=== PATIENT | female | born 1965 | race Caucasian/White ===

== ENCOUNTER 2019-01-04 17:42 | Emergency (ER) | payer OTHER ==
[2019-01-04 17:51] VITALS: BP 117/77; PULSE 87; RESP 16; TEMP 97.8
[2019-01-04] MEDS ORDERED: DIPH,PERTUS(ACELL)TETVAC-LF 0.5 ML VIAL IM ONE (18:03)
[2019-01-04] MEDS ORDERED: AMOXIC-POT CLAV 875-125MG 1 EACH TAB PO STA (18:03)
--- NOTE | 2019-01-04 18:10 | ED ---
General Adult HPI - General Source: patient, RN notes reviewed, old records reviewed Mode of arrival: ambulatory Limitations: no limitations <Juan Dewey - Last Filed: 01/04/19 19:01> <Princess Huston - Last Filed: 01/04/19 19:42> - General Chief complaint: Animal Bite Stated complaint: Dog bite in the face Time Seen by Provider: 01/04/19 17:52 - History of Present Illness Initial comments: 53-year-old female patient with no pertinent past history presents to ED with dog bite to face. Patient reports that she was bit by a relative's dog. She states that this dog is a pet and is up-to-date on all the shots.. She does have a wound in her left upper lip region. No other injury sustained. Patient does not know date of last tetanus. Patient denies any other complaints at this time. Systemic: Pt denies fatigue, myalgia, fever/chills, rash. Pt denies weakness, night sweats, weight loss. Neuro: Pt denies headache, visual disturbances, syncope or pre-syncope. HEENT: Pt denies ocular discharge or irritation, otalgia, rhinorrhea, pharyngitis or notable lymphadenopathy. Cardiopulmonary: Pt denies chest pain, SOB, heart palpitations, dyspnea on exertion. Abdominal/GI: Pt denies abdominal pain, n/v/d. : Pt denies dysuria, burning w/ urination, frequency/urgency. Denies new onset urinary or bowel incontinence. MSK: Pt denies myalgia, loss of strength or function in extremities. Neuro: Pt denies new onset weakness, paresthesias. (Juan Dewey) - Related Data Previous Rx's Medication Instructions Recorded Amoxicillin/Potassium Clav 1 each PO Q12HR #20 tab 01/04/19 [Augmentin 875-125 Tablet] Allergies Allergy/AdvReac Type Severity Reaction Status Date / Time No Known Allergies Allergy Verified 01/04/19 17:51 Review of Systems ROS Other: All systems not noted in ROS Statement are negative. <Juan Dewey - Last Filed: 01/04/19 19:01> ROS Other: All systems not noted in ROS Statement are negative. <Princess Huston - Last Filed: 01/04/19 19:42> ROS Statement: Those systems with pertinent positive or pertinent negative responses have been documented in the HPI. Past Medical History Past Medical History: Asthma, GERD/Reflux History of Any Multi-Drug Resistant Organisms: None Reported Past Surgical History: Section, Hysterectomy Past Psychological History: No Psychological Hx Reported Smoking Status: Current some day smoker Past Alcohol Use History: Occasional Past Drug Use History: None Reported <Juan Dewey - Last Filed: 01/04/19 19:01> General Exam Limitations: no limitations <Juan Dewey - Last Filed: 01/04/19 19:01> - General Exam Comments Initial Comments: Constitutional: NAD, AOX3, Pt has pleasant affect. HEENT: NC/AT, trachea midline, neck supple, no lymphadenopathy. Posterior pharynx non erythematous, without exudates. External ears appear normal, without discharge. Mucous membranes moist. Eyes PERRLA, EOM intact. There is no scleral icterus. No pallor noted. Cardiopulmonary: RRR, no murmurs, rubs or gallops, no JVD noted. Lungs CTAB in anterior and posterior donato. No peripheral edema. Abdominal exam: Abdomen soft and non-distended. Abdomen non-tender to palpation in all 4 quadrants. Bowel sounds active in LLQ. No hepatosplenomegaly. No ecchymosis Neuro: CN II-XII grossly intact. No nuchal rigidity. MSK: 2 x 2 centimeter laceration to left upper lip region. Avulsion. Skin removed during bite, unable to approximate. No through and through. No other injury. Vigorously irrigated with 1 L normal saline. No posterior calf tenderness bilaterally, homans sign negative bilaterally. Posterior tibialis and radial pulse +2 bilaterally. Sensation intact in upper and lower extremities. Full active ROM in upper and lower extremities, 5/5 stregnth. (Juan Dewey) Course Vital Signs 01/04/19 17:46 Temperature 97.8 F Pulse Rate 87 Respiratory 16 Rate Blood Pressure 117/77 O2 Sat by Pulse 97 Oximetry Medical Decision Making <Juan Dewey - Last Filed: 01/04/19 19:01> <Princess Hutson - Last Filed: 01/04/19 19:42> - Medical Decision Making 53-year-old female patient with no pertinent past history presents to ED with dog bite to face. Patient reports that she was bit by a relative's dog. She states that this dog is a pet and is up-to-date on all the shots.. She does have a wound in her left upper lip region. No other injury sustained. Patient does not know date of last tetanus. Patient denies any other complaints at this time. Physical exam displayed: 2 x 2 centimeter laceration to left upper lip region. Avulsion. Skin removed during bite, unable to approximate. No through and through. No other injury. Vigorously irrigated with 1 L normal saline. Patient tetanus updated. Patient administered 1 dose of Augmentin. Patient declined rabies prophylaxis. Patient will be transferred to [facility] for Plastic Surgery Consultation, accepting physician Dr. Lazaro. Patient prescribed 10 days of Augmentin. Will travel by private vehicle. Case discussed with Dr. Huston. (Juan Dewey) I personally saw and evaluated the patient. Patient has a avulsion of skin and tissue from the left superior lip involving the vermilion border. I feel the patient requires evaluation by plastic surgery for possible repair versus plan for reconstruction. This plan was discussed with patient who is agreeable to transfer her would like to take her by private vehicle. Patient's wounds were cleansed here she was given tetanus prophylaxis and was discharged with the plan to travel to [facility] for evaluation by plastic surgery. (Princess Huston) Disposition Is patient prescribed a controlled substance at d/c from ED?: No - Out of Hospital Transfer - Req. Specs Out of Hospital Transfer - Requested Specifics: Other Emergency Center ([facility]) <Juan Dewey - Last Filed: 01/04/19 19:01> <Princess Huston - Last Filed: 01/04/19 19:42> Clinical Impression: Dog bite Disposition: OTHER INSTITUTION NOT DEFINED Condition: Fair Instructions (If sedation given, give patient instructions): Animal Bite (ED) Prescriptions: Amoxicillin/Potassium Clav [Augmentin 875-125 Tablet] 1 each PO Q12HR #20 tab Referrals: Nonstaff,Physician [Primary Care Provider] - 1-2 days
== END 2019-01-04 19:14 | disposition other institution (70) ==
LOC: EC 17:42
DX: S01.511A Laceration without foreign body of lip, initial encounter (principal); Z53.20 Procedure and treatment not carried out because of patient's decision for unspecified reasons; Z23 Encounter for immunization; F17.200 Nicotine dependence, unspecified, uncomplicated; W54.0XXA Bitten by dog, initial encounter; Y92.009 Unspecified place in unspecified non-institutional (private) residence as the place of occurrence of the external cause
CPT/HCPCS: 90471; 90715; 99284

== ENCOUNTER 2019-10-15 09:27 | Emergency (ER) | payer BC, OTHER ==
[2019-10-15 09:32] VITALS: RESP 18; TEMP 98
[2019-10-15] MEDS ORDERED: ONDANSETRON 4 MG/2 ML VIAL IVP STA (09:40)
[2019-10-15] MEDS ORDERED: SODIUM CHLORIDE 0.9% 1,000 ML IV STA (09:40)
[2019-10-15] MEDS ORDERED: MORPHINE SULFATE 4 MG/ML SYRINGE IV STA (09:40)
[2019-10-15 10:05] LABS: Basophils # (A) 0.1 k/uL (0-0.2); Basophils % (A) 1 %; Eosinophils # (A) 0.3 k/uL (0-0.7); Eosinophils % (A) 3 %; HCT 44.6 % (34.0-46.0); Lymphocytes # (A) 1.9 k/uL (1.0-4.8); Lymphocytes % (A) 20 %; MCH 29.9 pg (25.0-35.0); MCHC 33.6 g/dL (31.0-37.0); Monocytes # (A) 0.5 k/uL (0-1.0); Monocytes % (A) 6 %; Neutrophils # (A) 6.3 k/uL (1.3-7.7); Neutrophils % (A) 68 %; Platelet Count 355 k/uL (150-450); RBC 5.01 m/uL (3.80-5.40); RDW 12.9 % (11.5-15.5); WBC 9.3 k/uL (3.8-10.6)
--- NOTE | 2019-10-15 10:10 | ED ---
Fall HPI - General Chief Complaint: Fall Stated Complaint: Fall Time Seen by Provider: 10/15/19 09:36 Source: patient, RN notes reviewed Mode of arrival: ambulatory Limitations: no limitations - History of Present Illness Initial Comments: This a 54-year-old female presents emergency Department chief complaint of severe left-sided flank pain. Patient states that she fell going out her porch. Patient fell onto her left side. Patient states that she has severe pain throughout the night increasing pain with deep inspiration feels short of breath. Patient also noticed some blood within her urine this morning. Patient states that she is not taking any blood thinners there is no head injury no loss conscious. Patient states there is some bruising on her left side. - Related Data Home Medications Medication Instructions Recorded Confirmed Albuterol Sulfate [Ventolin HFA] 2 puff INHALATION RT-Q4H PRN 10/15/19 10/15/19 FLUoxetine HCL [PROzac] 20 mg PO DAILY 10/15/19 10/15/19 buPROPion SR [Wellbutrin Sr] 150 mg PO DAILY 10/15/19 10/15/19 Previous Rx's Medication Instructions Recorded HYDROcodone/APAP 7.5-325MG [Lefors 1 tab PO Q6HR PRN 3 Days #12 tab 10/15/19 7.5-325] Allergies Allergy/AdvReac Type Severity Reaction Status Date / Time No Known Allergies Allergy Verified 10/15/19 10:10 Review of Systems ROS Statement: Those systems with pertinent positive or pertinent negative responses have been documented in the HPI. ROS Other: All systems not noted in ROS Statement are negative. Past Medical History Past Medical History: Asthma, GERD/Reflux History of Any Multi-Drug Resistant Organisms: None Reported Past Surgical History: Section, Hysterectomy Past Psychological History: No Psychological Hx Reported Smoking Status: Current some day smoker Past Alcohol Use History: Occasional Past Drug Use History: None Reported General Exam Limitations: no limitations General appearance: alert, in no apparent distress Head exam: Present: atraumatic, normocephalic, normal inspection Eye exam: Present: normal appearance, PERRL, EOMI. Absent: scleral icterus, conjunctival injection, periorbital swelling ENT exam: Present: normal exam, normal oropharynx, mucous membranes moist Neck exam: Present: normal inspection, other. Absent: tenderness, meningismus, lymphadenopathy Respiratory exam: Present: normal lung sounds bilaterally, chest wall tenderness (Moderate tenderness in the left side.). Absent: respiratory distress, wheezes, rales, rhonchi, stridor Cardiovascular Exam: Present: normal rhythm, tachycardia, normal heart sounds. Absent: systolic murmur, diastolic murmur, rubs, gallop, clicks GI/Abdominal exam: Present: soft, tenderness, guarding, normal bowel sounds. Absent: distended, rebound, rigid Back exam: Present: full ROM. Absent: tenderness, paraspinal tenderness, vertebral tenderness Neurological exam: Present: alert, oriented X3, CN II-XII intact, reflexes normal. Absent: motor sensory deficit Skin exam: Present: warm, dry, intact, normal color. Absent: rash Course Vital Signs 10/15/19 09:28 Temperature 98.0 F Pulse Rate 112 H Respiratory 18 Rate Blood Pressure 177/108 O2 Sat by Pulse 98 Oximetry Medical Decision Making - Medical Decision Making CT shows evidence of 2 rib fractures and a left no other acute findings. Patient pain is improved will be discharged in stable condition. - Lab Data Result diagrams: 10/15/19 09:53 10/15/19 09:53 Lab Results 10/15/19 10/15/19 10/15/19 Range/Units 09:53 09:53 09:53 WBC 9.3 (3.8-10.6) k/uL RBC 5.01 (3.80-5.40) m/uL Hgb 15.0 (11.4-16.0) gm/dL Hct 44.6 (34.0-46.0) % MCV 89.0 (80.0-100.0) fL MCH 29.9 (25.0-35.0) pg MCHC 33.6 (31.0-37.0) g/dL RDW 12.9 (11.5-15.5) % Plt Count 355 (150-450) k/uL Neutrophils % 68 % Lymphocytes % 20 % Monocytes % 6 % Eosinophils % 3 % Basophils % 1 % Neutrophils # 6.3 (1.3-7.7) k/uL Lymphocytes # 1.9 (1.0-4.8) k/uL Monocytes # 0.5 (0-1.0) k/uL Eosinophils # 0.3 (0-0.7) k/uL Basophils # 0.1 (0-0.2) k/uL PT 9.6 (9.0-12.0) sec INR 0.9 (<1.2) APTT 23.7 (22.0-30.0) sec Sodium 143 (137-145) mmol/L Potassium 4.8 (3.5-5.1) mmol/L Chloride 109 H (98-107) mmol/L Carbon Dioxide 21 L (22-30) mmol/L Anion Gap 13 mmol/L BUN 14 (7-17) mg/dL Creatinine 0.62 (0.52-1.04) mg/dL Est GFR (CKD-EPI)AfAm >90 (>60 ml/min/1.73 sqM) Est GFR (CKD-EPI)NonAf >90 (>60 ml/min/1.73 sqM) Glucose 101 H (74-99) mg/dL Calcium 9.2 (8.4-10.2) mg/dL Total Bilirubin 0.2 (0.2-1.3) mg/dL AST 23 (14-36) U/L ALT 15 (4-34) U/L Alkaline Phosphatase 65 (38-126) U/L Total Protein 8.1 (6.3-8.2) g/dL Albumin 5.1 H (3.5-5.0) g/dL Lipase 111 (23-300) U/L Urine Color Urine Appearance (Clear) Urine pH (5.0-8.0) Ur Specific [place] (1.001-1.035) Urine Protein (Negative) Urine Glucose (UA) (Negative) Urine Ketones (Negative) Urine Blood (Negative) Urine Nitrite (Negative) Urine Bilirubin (Negative) Urine Urobilinogen (<2.0) mg/dL Ur Leukocyte Esterase (Negative) Urine RBC (0-5) /hpf Urine WBC (0-5) /hpf Ur Squamous Epith Cells (0-4) /hpf Urine Mucus (None) /hpf 10/15/19 Range/Units 12:27 WBC (3.8-10.6) k/uL RBC (3.80-5.40) m/uL Hgb (11.4-16.0) gm/dL Hct (34.0-46.0) % MCV (80.0-100.0) fL MCH (25.0-35.0) pg MCHC (31.0-37.0) g/dL RDW (11.5-15.5) % Plt Count (150-450) k/uL Neutrophils % % Lymphocytes % % Monocytes % % Eosinophils % % Basophils % % Neutrophils # (1.3-7.7) k/uL Lymphocytes # (1.0-4.8) k/uL Monocytes # (0-1.0) k/uL Eosinophils # (0-0.7) k/uL Basophils # (0-0.2) k/uL PT (9.0-12.0) sec INR (<1.2) APTT (22.0-30.0) sec Sodium (137-145) mmol/L Potassium (3.5-5.1) mmol/L Chloride (98-107) mmol/L Carbon Dioxide (22-30) mmol/L Anion Gap mmol/L BUN (7-17) mg/dL Creatinine (0.52-1.04) mg/dL Est GFR (CKD-EPI)AfAm (>60 ml/min/1.73 sqM) Est GFR (CKD-EPI)NonAf (>60 ml/min/1.73 sqM) Glucose (74-99) mg/dL Calcium (8.4-10.2) mg/dL Total Bilirubin (0.2-1.3) mg/dL AST (14-36) U/L ALT (4-34) U/L Alkaline Phosphatase (38-126) U/L Total Protein (6.3-8.2) g/dL Albumin (3.5-5.0) g/dL Lipase (23-300) U/L Urine Color Light Yellow Urine Appearance Clear (Clear) Urine pH 5.5 (5.0-8.0) Ur Specific [place] >1.050 H (1.001-1.035) Urine Protein Negative (Negative) Urine Glucose (UA) Negative (Negative) Urine Ketones Negative (Negative) Urine Blood Small H (Negative) Urine Nitrite Negative (Negative) Urine Bilirubin Negative (Negative) Urine Urobilinogen <2.0 (<2.0) mg/dL Ur Leukocyte Esterase Negative (Negative) Urine RBC 2 (0-5) /hpf Urine WBC <1 (0-5) /hpf Ur Squamous Epith Cells 1 (0-4) /hpf Urine Mucus Rare H (None) /hpf Disposition Clinical Impression: Fall, Multiple fractures of ribs of left side Disposition: HOME SELF-CARE Condition: Stable Instructions (If sedation given, give patient instructions): Rib Fracture (ED) Additional Instructions: Please return to the Emergency Department if symptoms worsen or any other concerns. Prescriptions: HYDROcodone/APAP 7.5-325MG [Lefors 7.5-325] 1 tab PO Q6HR PRN 3 Days #12 tab PRN Reason: pain Is patient prescribed a controlled substance at d/c from ED?: Yes When asked, does pt state using other controlled substances?: No If prescribed controlled substance>3 days was MAPS reviewed?: Prescribed <3 Days If opioid is for acute pain is fill amount 7 days or less?: Yes If Rx opioid, was Start Talking consent form obtained?: Yes Referrals: Nonstaff,Physician [Primary Care Provider] - 1-2 days Time of Disposition: 13:12
[2019-10-15 10:17] LABS: ALT 15 U/L (4-34); AST 23 U/L (14-36); African American GFR (CKD) >90 (>60 ml/min/1.73 sqM); Albumin 5.1 g/dL (3.5-5.0); Alkaline Phosphatase 65 U/L (38-126); Anion Gap 13 mmol/L; Blood Urea Nitrogen 14 mg/dL (7-17); Calcium 9.2 mg/dL (8.4-10.2); Carbon Dioxide 21 mmol/L (22-30); Chloride 109 mmol/L (98-107); Glucose 101 mg/dL (74-99); Non-African American GFR(CKD) >90 (>60 ml/min/1.73 sqM); Potassium 4.8 mmol/L (3.5-5.1); Sodium 143 mmol/L (137-145); Total Bilirubin 0.2 mg/dL (0.2-1.3); Total Protein 8.1 g/dL (6.3-8.2)
[2019-10-15 10:18] LABS: INR 0.9 (<1.2); Partial Thromboplastin Time 23.7 sec (22.0-30.0); Prothrombin Time 9.6 sec (9.0-12.0)
[2019-10-15] MEDS ORDERED: MORPHINE SULFATE 4 MG/ML SYRINGE IVP STA (10:44)
--- NOTE | 2019-10-15 10:58 | CT ---
EXAMINATION TYPE: CT ChestAbdPelvis w con DATE OF EXAM: 10/15/2019 COMPARISON: None. HISTORY: Fall, Lt sided rib pain, hematuria CT DLP: 994.5 mGycm. Automated Exposure Control for Dose Reduction was Utilized. CONTRAST: CT scan of the thorax, abdomen and pelvis is performed without oral but with IV Contrast, patient inj ected with 100 mL of Isovue 300. Trauma protocol. FINDINGS: LUNGS: Dependent atelectasis bilateral lower lobes. No suspicious focal consolidation or groundglass opacity. No concerning parenchymal nodules or masses. Focal linear scarring or atelectasis superior a spect right lower lobe coronal image 70. No pleural effusion or pneumothorax seen bilaterally. MEDIASTINUM: There are no greater than 1 cm hilar or mediastinal lymph nodes. No cardiomegaly or pe ricardial effusion is seen. LIVER/GB: No significant abnormality is appreciated. PANCREAS: No significant abnormality is seen. SPLEEN: No significant abnormality is seen. ADRENALS: No significant abnormality is seen. KIDNEYS: Symmetric cortical medullary uptake and excretion without hydronephrosis seen bilaterally. S imple appearing exophytic 1.4 cm thin-walled cyst laterally mid pole level left kidney incidentally n oted axial image 34 series 301. Bladder shows a 2 mm calcific focus in the anterior bladder wall perh aps calculus adherent to wall from scar tissue or adhesion. BOWEL: No suspicious small or large bowel dilatation. Some fecal focal prominence of the right colon on axial image 67. Incidental just over 3 cm diverticulum coronal image 56 near junction of second an d third portion portion. GENITAL ORGANS: Uterus is surgically absent or markedly atrophic. Occasional pelvic phleboliths. LYMPH NODES: No greater than 1cm abdominal or pelvic lymph nodes are appreciated. OSSEOUS STRUCTURES: Acute minimally displaced vertical fractures of the left 12th and 11th ribs coron al images 82 and 85. Slight S-shaped scoliosis. OTHER: No significant additional abnormality is seen. IMPRESSION: 1. Acute minimally displaced vertical fractures left posterior 11th and 12th ribs. 2. No acute posttraumatic finding or evidence of solid organ injury otherwise seen in the thorax abdo men or pelvis. No suspicious free fluid. Possible 2 mm nondependent calculus in the anterior bladder wall as noted above.
[2019-10-15] MEDS ORDERED: ORPHENADRINE 30 MG/ML 2 ML VIAL IVP STA (11:30)
[2019-10-15 12:53] LABS: Appearance,Urine Clear (Clear); Bilirubin,Urine Negative (Negative); Blood,Urine Small (Negative); Color,Urine Light Yellow; Glucose,Urine (UA) Negative (Negative); Ketones,Urine Negative (Negative); Leukocyte Esterase,Urine Negative (Negative); Mucus,Urine Rare /hpf; Nitrite,Urine Negative (Negative); PH, Urine 5.5 (5.0-8.0); Protein,Urine Negative (Negative); RBC,Urine 2 /hpf (0-5); Squamous Epithelial Cell,Urine 1 /hpf (0-4); Urobilinogen,Urine <2.0 mg/dL (<2.0); WBC,Urine <1 /hpf (0-5)
[2019-10-15 13:02] LABS: Specific Gravity,Urine >1.050 (1.001-1.035)
[2019-10-15 13:30] VITALS: BP 121/85; PULSE 84
== END 2019-10-15 13:30 | disposition home or self-care (01) ==
LOC: EC 09:27
DX: S22.42XA Multiple fractures of ribs, left side, initial encounter for closed fracture (principal); R10.9 Unspecified abdominal pain; R31.9 Hematuria, unspecified; J45.909 Unspecified asthma, uncomplicated; F17.200 Nicotine dependence, unspecified, uncomplicated; Z79.899 Other long term (current) drug therapy; W01.0XXA Fall on same level from slipping, tripping and stumbling without subsequent striking against object, initial encounter
CPT/HCPCS: 99284; 96374; 96375 ×2; 96376; 96361; 36415; 80053; 83690; 85025; 85610; 85730; 81001; 71260; 74177; J2270; J2360; J2405; Q9967

== ENCOUNTER 2019-10-17 11:05 | Emergency (ER) | payer BC, OTHER ==
[2019-10-17 11:20] VITALS: TEMP 97.9
[2019-10-17] MEDS ORDERED: KETOROLAC 30 MG/ML 1 ML VIAL IM STA (11:37)
[2019-10-17] MEDS ORDERED: MORPHINE SULFATE 4 MG/ML SYRINGE IM STA (11:37)
--- NOTE | 2019-10-17 11:42 | ED ---
General Adult HPI - General Chief complaint: Shortness of Breath Stated complaint: broken ribs Time Seen by Provider: 10/17/19 11:31 Source: patient, RN notes reviewed, old records reviewed Mode of arrival: ambulatory Limitations: no limitations - History of Present Illness Initial comments: 54-year-old female presented for evaluation of left-sided rib pain. Patient to fall 2 days ago with 2 known rib fractures. She was seen emergency department at that time. Prescribed pain control. States that the pain medicine is not working well and she is having some moderate dyspnea as well as worsening pain. Denies any new injury. Denies fever or chills. Denies significant cough. Patient is otherwise healthy with no chronic medical conditions. No anticoagulation. - Related Data Home Medications Medication Instructions Recorded Confirmed Albuterol Sulfate [Ventolin HFA] 2 puff INHALATION RT-Q4H PRN 10/15/19 10/15/19 FLUoxetine HCL [PROzac] 20 mg PO DAILY 10/15/19 10/15/19 buPROPion SR [Wellbutrin Sr] 150 mg PO DAILY 10/15/19 10/15/19 Previous Rx's Medication Instructions Recorded HYDROcodone/APAP 7.5-325MG [Switchback 1 tab PO Q6HR PRN 3 Days #12 tab 10/15/19 7.5-325] HYDROcodone/APAP 5-325MG [Switchback 1 tab PO Q6HR PRN #12 tab 10/17/19 5-325] Ibuprofen [Motrin] 600 mg PO Q8HR PRN #24 tab 10/17/19 Lidocaine 5% Patch [Lidoderm 5% 1 patch TOPICAL DAILY #15 patch 10/17/19 Patch] Allergies Allergy/AdvReac Type Severity Reaction Status Date / Time No Known Allergies Allergy Verified 10/17/19 11:20 Review of Systems ROS Statement: Those systems with pertinent positive or pertinent negative responses have been documented in the HPI. ROS Other: All systems not noted in ROS Statement are negative. Past Medical History Past Medical History: Asthma, GERD/Reflux History of Any Multi-Drug Resistant Organisms: None Reported Past Surgical History: Section, Hysterectomy Past Psychological History: No Psychological Hx Reported Smoking Status: Current some day smoker Past Alcohol Use History: Occasional Past Drug Use History: None Reported General Exam Limitations: no limitations General appearance: alert, in no apparent distress Head exam: Present: atraumatic, normocephalic Eye exam: Present: normal appearance, PERRL ENT exam: Present: normal exam Neck exam: Present: normal inspection. Absent: tenderness, meningismus Respiratory exam: Present: normal lung sounds bilaterally, chest wall tenderness. Absent: respiratory distress, wheezes Cardiovascular Exam: Present: regular rate, normal rhythm GI/Abdominal exam: Present: soft. Absent: distended, tenderness, guarding Extremities exam: Present: normal inspection, normal capillary refill. Absent: pedal edema Neurological exam: Present: alert, oriented X3 Psychiatric exam: Present: normal affect, normal mood Skin exam: Present: warm, dry, intact. Absent: cyanosis, diaphoretic Course Vital Signs 10/17/19 11:17 Temperature 97.9 F Pulse Rate 83 Respiratory 22 Rate Blood Pressure 121/74 O2 Sat by Pulse 98 Oximetry Medical Decision Making - Medical Decision Making 54-year-old female with pain associated with known left rib fractures. X-ray repeated, shows a ninth and 10th displaced rib fracture, no pneumothorax. Minimal atelectasis versus fluid. Injury is greater than 48 hours old. Patient has significant improved pain control emergency department. She will be prescribed Switchback, Motrin, and lidocaine patch. She has) follow-up with her primary care physician. She is given an incentive spirometer by respiratory, encouraged to use hourly. Disposition Clinical Impression: Multiple fractures of ribs of left side Disposition: HOME SELF-CARE Condition: Good Additional Instructions: Please follow up with her primary care physician for continued dosing of pain medication. These return with worsening or changing symptoms. Prescriptions: Lidocaine 5% Patch [Lidoderm 5% Patch] 1 patch TOPICAL DAILY #15 patch Ibuprofen [Motrin] 600 mg PO Q8HR PRN #24 tab PRN Reason: Pain HYDROcodone/APAP 5-325MG [Switchback 5-325] 1 tab PO Q6HR PRN #12 tab PRN Reason: Pain Is patient prescribed a controlled substance at d/c from ED?: No Referrals: Nonstaff,Physician [Primary Care Provider] - 1-2 days Time of Disposition: 12:56
[2019-10-17] MEDS ORDERED: LIDOCAINE 5% PATCH TOPICAL SCH (11:45)
--- NOTE | 2019-10-17 12:28 | XR ---
EXAMINATION TYPE: XR chest 2V DATE OF EXAM: 10/17/2019 COMPARISON: None INDICATION: Rib fracture TECHNIQUE: Frontal and lateral views of the chest are obtained. FINDINGS: The heart size is normal. The pulmonary vasculature is normal. There is minimal blunting left costophrenic angle. Very minimal fluid may be present.. No pneumothor ax is evident. Lateral 10th and ninth rib fractures are evident. IMPRESSION: 1. Minimal blunting left costophrenic angle. This could be related to fluid or atelectasis. 2. Lateral left rib fractures 9 and 10
[2019-10-17 13:13] VITALS: BP 127/85; PULSE 73; RESP 16
== END 2019-10-17 13:13 | disposition home or self-care (01) ==
LOC: EC 11:05
DX: S22.42XA Multiple fractures of ribs, left side, initial encounter for closed fracture (principal); J45.909 Unspecified asthma, uncomplicated; F17.200 Nicotine dependence, unspecified, uncomplicated; Z79.899 Other long term (current) drug therapy; W19.XXXA Unspecified fall, initial encounter; Y92.009 Unspecified place in unspecified non-institutional (private) residence as the place of occurrence of the external cause
CPT/HCPCS: 71046; 99285; 96372 ×2; J2270; J1885

== ENCOUNTER 2021-05-24 19:51 | Emergency (ER) | payer BC, OTHER ==
[2021-05-24 20:24] VITALS: BP 128/74; TEMP 98.1
[2021-05-24] MEDS ORDERED: ALBUTEROL NEBULIZED 2.5 MG/3 ML INHALATION STA (21:04)
[2021-05-24] MEDS ORDERED: IPRATROPIUM-ALBUTEROL 3 ML NEB INHALATION STA (21:04)
--- NOTE | 2021-05-24 21:07 | XR ---
EXAMINATION TYPE: XR chest 2V DATE OF EXAM: 05/24/2021 COMPARISON: 10/17/2019 HISTORY: Short of breath TECHNIQUE: FINDINGS: Heart and mediastinum are normal. Lungs are clear. Diaphragm is normal. Bony thorax appears normal. IMPRESSION: Normal chest. There is improved inspiration compared to old exam.
[2021-05-24] MEDS ORDERED: predniSONE 20 MG TAB PO STA (21:08)
--- NOTE | 2021-05-24 21:08 | ED ---
General Adult HPI - General Chief complaint: Upper Respiratory Infection Stated complaint: Sore throat,Asthma Time Seen by Provider: 05/24/21 20:53 Source: patient Mode of arrival: ambulatory Limitations: no limitations - History of Present Illness Initial comments: Patient is a 55-year-old woman with history of asthma who states that it feels like her asthma is flaring up. The patient states that symptoms started proximally 24 hours ago. Last evening she was feeling like she is developing shortness of breath and wheeze. She tried the albuterol at home which was just giving minimal relief. The symptoms worsened over the course of today. She states that previously when her breathing is been like this she has needed a course of steroids. There is a cough but it is nonproductive. No fever or chills. No chest pain. Onset/Timin -: days(s) Severity scale (1-10): 0 Consistency: constant Improves with: none Worsens with: none Associated Symptoms: cough, shortness of breath Treatments Prior to Arrival: other - Related Data Home Medications Medication Instructions Recorded Confirmed Albuterol Sulfate [Ventolin HFA] 2 puff INHALATION RT-Q4H PRN 10/15/19 10/15/19 FLUoxetine HCL [PROzac] 20 mg PO DAILY 10/15/19 10/15/19 buPROPion SR [Wellbutrin Sr] 150 mg PO DAILY 10/15/19 10/15/19 Previous Rx's Medication Instructions Recorded HYDROcodone/APAP 7.5-325MG [[place] 1 tab PO Q6HR PRN 3 Days #12 tab 10/15/19 7.5-325] HYDROcodone/APAP 5-325MG [[place] 1 tab PO Q6HR PRN #12 tab 10/17/19 5-325] Ibuprofen [Motrin] 600 mg PO Q8HR PRN #24 tab 10/17/19 Lidocaine 5% Patch [Lidoderm 5% 1 patch TOPICAL DAILY #15 patch 10/17/19 Patch] predniSONE 60 mg PO DAILY #30 tab 05/24/21 Allergies Allergy/AdvReac Type Severity Reaction Status Date / Time No Known Allergies Allergy Verified 10/17/19 11:20 Review of Systems ROS Statement: Those systems with pertinent positive or pertinent negative responses have been documented in the HPI. ROS Other: All systems not noted in ROS Statement are negative. Constitutional: Denies: fever, chills, weakness Respiratory: Reports: cough, dyspnea, wheezes. Denies: hemoptysis Cardiovascular: Denies: chest pain, palpitations, edema Gastrointestinal: Denies: abdominal pain, vomiting, diarrhea Genitourinary: Denies: dysuria, hematuria Musculoskeletal: Denies: back pain Skin: Denies: rash Neurological: Denies: headache Past Medical History Past Medical History: Asthma, GERD/Reflux History of Any Multi-Drug Resistant Organisms: None Reported Past Surgical History: Section, Hysterectomy Past Psychological History: No Psychological Hx Reported Smoking Status: Never smoker Past Alcohol Use History: Occasional Past Drug Use History: None Reported General Exam Limitations: no limitations General appearance: alert, in no apparent distress Head exam: Present: atraumatic, normocephalic Eye exam: Present: normal appearance. Absent: scleral icterus, conjunctival injection ENT exam: Present: normal oropharynx Neck exam: Present: normal inspection Respiratory exam: Present: wheezes. Absent: respiratory distress, rales, rhonchi, stridor, accessory muscle use, decreased breath sounds Cardiovascular Exam: Present: regular rate, normal rhythm, normal heart sounds. Absent: systolic murmur, diastolic murmur, rubs, gallop GI/Abdominal exam: Present: soft. Absent: distended, tenderness, guarding, rebound, rigid, mass, pulsatile mass Extremities exam: Present: normal inspection, normal capillary refill. Absent: pedal edema, calf tenderness Back exam: Present: normal inspection. Absent: CVA tenderness (R), CVA tenderness (L) Neurological exam: Present: alert Skin exam: Present: warm, dry, intact, normal color. Absent: rash Course Vital Signs 05/24/21 20:21 Temperature 98.1 F Pulse Rate 112 H Respiratory 24 Rate Blood Pressure 128/74 O2 Sat by Pulse 93 L Oximetry Medical Decision Making - Lab Data Lab Results 05/24/21 Range/Units 20:24 Coronavirus (PCR) Not Detected (Not Detectd) Disposition Clinical Impression: Asthma exacerbation Disposition: HOME SELF-CARE Condition: Good Instructions (If sedation given, give patient instructions): Asthma (DC) Prescriptions: predniSONE 60 mg PO DAILY #30 tab Is patient prescribed a controlled substance at d/c from ED?: No Referrals: Nonstaff,Physician [Primary Care Provider] - 1-2 days
[2021-05-24 23:21] VITALS: PULSE 98; RESP 20
== END 2021-05-24 23:21 | disposition home or self-care (01) ==
LOC: EC 19:51
DX: J45.901 Unspecified asthma with (acute) exacerbation (principal); Z79.51 Long term (current) use of inhaled steroids; Z79.1 Long term (current) use of non-steroidal anti-inflammatories (NSAID); Z79.899 Other long term (current) drug therapy
CPT/HCPCS: 94640; 87635; 71046; 99285; J7512

== ENCOUNTER 2021-05-25 00:44 | Observation (INO) | payer OTHER ==
[2021-05-25] MEDS ORDERED: ALBUTEROL NEBULIZED 2.5 MG/3 ML INHALATION STA ×2 (00:54→05:21)
--- NOTE | 2021-05-25 01:06 | ED ---
SOB HPI - General Chief Complaint: Shortness of Breath Stated Complaint: Shortness of Breath, revisit Time Seen by Provider: 05/25/21 00:50 Source: patient Mode of arrival: ambulatory Limitations: no limitations - History of Present Illness Initial Comments: This patient is a 55-year-old woman who has history of asthma and presents with a couple of days worsening cough, dyspnea, wheezing. She states it similar previous asthma exacerbations. She was seen here earlier, had treatments and then felt that she could manage at home but states that the dyspnea returned very shortly after leaving and therefore presents for reevaluation. Complaint: shortness of breath, cough, "asthma attack" -: days(s) Severity scale (1-10): 0 Consistency: constant Improves With: nothing Worsens With: nothing Known History Of: asthma Associated Symptoms: cough Treatments Prior to Arrival: none - Related Data Home Oxygen Therapy: No Home Medications Medication Instructions Recorded Confirmed Albuterol Sulfate [Ventolin HFA] 2 puff INHALATION RT-Q4H PRN 10/15/19 05/25/21 Previous Rx's Medication Instructions Recorded Montelukast [Singulair] 10 mg PO HS #30 tab 05/26/21 predniSONE See Taper PO DIRECTED #40 tab 05/26/21 Allergies Allergy/AdvReac Type Severity Reaction Status Date / Time No Known Allergies Allergy Verified 05/25/21 17:08 Review of Systems ROS Statement: Those systems with pertinent positive or pertinent negative responses have been documented in the HPI. ROS Other: All systems not noted in ROS Statement are negative. Constitutional: Denies: fever Respiratory: Reports: cough, dyspnea, wheezes. Denies: hemoptysis Cardiovascular: Denies: chest pain, palpitations, edema, syncope Gastrointestinal: Denies: abdominal pain, vomiting, diarrhea Genitourinary: Denies: urgency, dysuria Musculoskeletal: Denies: back pain Skin: Denies: rash Neurological: Denies: headache, weakness, numbness Past Medical History Past Medical History: Asthma, GERD/Reflux History of Any Multi-Drug Resistant Organisms: None Reported Past Surgical History: Section, Hysterectomy Past Psychological History: No Psychological Hx Reported Smoking Status: Never smoker Past Alcohol Use History: Occasional Past Drug Use History: None Reported - Past Family History Mother Family Medical History: No Reported History Father Family Medical History: No Reported History General Exam Limitations: no limitations General appearance: alert, in no apparent distress Head exam: Present: atraumatic, normocephalic Eye exam: Present: normal appearance. Absent: scleral icterus, conjunctival injection ENT exam: Present: normal oropharynx Neck exam: Present: normal inspection Respiratory exam: Present: respiratory distress, wheezes. Absent: rales, rhonchi, stridor, accessory muscle use, decreased breath sounds, prolonged expiratory Cardiovascular Exam: Present: regular rate, normal rhythm, normal heart sounds. Absent: systolic murmur, diastolic murmur, rubs, gallop GI/Abdominal exam: Present: soft. Absent: distended, tenderness, guarding, rebound, rigid, mass Extremities exam: Present: normal inspection, normal capillary refill. Absent: pedal edema, calf tenderness Back exam: Present: normal inspection. Absent: CVA tenderness (R), CVA tenderness (L) Neurological exam: Present: alert Skin exam: Present: warm, dry, intact, normal color. Absent: rash Course Vital Signs 05/25/21 05/25/21 05/25/21 00:49 01:12 01:31 Temperature 98 F Pulse Rate 122 H 110 H 131 H Respiratory 28 H Rate Blood Pressure 128/79 O2 Sat by Pulse 88 L Oximetry 05/25/21 05/25/21 05/25/21 05:10 05:19 05:20 Temperature Pulse Rate 92 111 H 111 H Respiratory Rate Blood Pressure O2 Sat by Pulse Oximetry 05/25/21 05/25/21 05/25/21 05:33 06:44 07:22 Temperature 98.9 F Pulse Rate 117 H 107 H 112 H Respiratory 18 Rate Blood Pressure 112/69 O2 Sat by Pulse 95 Oximetry 05/25/21 05/25/21 05/25/21 07:40 09:00 10:33 Temperature Pulse Rate 122 H 101 H Respiratory Rate Blood Pressure 112/66 O2 Sat by Pulse Oximetry 05/25/21 05/25/21 05/25/21 10:43 11:00 13:00 Temperature Pulse Rate 115 H Respiratory Rate Blood Pressure 113/43 115/65 O2 Sat by Pulse Oximetry 05/25/21 05/25/21 05/25/21 15:02 15:12 15:51 Temperature Pulse Rate 82 Respiratory 80 H 80 H Rate Blood Pressure 135/74 O2 Sat by Pulse 97 Oximetry 05/25/21 05/25/21 16:18 16:19 Temperature Pulse Rate 84 65 Respiratory 18 Rate Blood Pressure 144/65 O2 Sat by Pulse 97 Oximetry Medical Decision Making - Lab Data Result diagrams: 05/26/21 06:34 05/26/21 06:34 - EKG Data -: EKG Interpreted by Me EKG shows normal: sinus rhythm, axis (Normal), intervals (Normal), QRS complexes (Normal), ST-T waves (Normal) Rate: tachycardia (Rate 111 bpm) Disposition Clinical Impression: Asthma exacerbation Disposition: ADMITTED IP TO THIS HOSP Condition: Fair
[2021-05-25] MEDS ORDERED: ALBUTEROL NEBULIZED 2.5 MG/3 ML INHALATION PRN (01:07)
[2021-05-25] MEDS ORDERED: SODIUM CHLORIDE 0.9% 1,000 ML IV STA (01:11)
[2021-05-25 01:43] LABS: Basophils % (A) 0 %; Eosinophils # (A) 0.2 k/uL (0-0.7); Eosinophils % (A) 2 %; HCT 42.1 % (34.0-46.0); HGB 13.9 gm/dL (11.4-16.0); Lymphocytes # (A) 0.7 k/uL (1.0-4.8); Lymphocytes % (A) 6 %; MCH 30.4 pg (25.0-35.0); MCHC 33.1 g/dL (31.0-37.0); MCV 91.9 fL (80.0-100.0); Mean Platelet Volume 7.2; Monocytes # (A) 0.2 k/uL (0-1.0); Monocytes % (A) 2 %; Neutrophils # (A) 9.7 k/uL (1.3-7.7); Neutrophils % (A) 90 %; Platelet Count 293 k/uL (150-450); RBC 4.58 m/uL (3.80-5.40); RDW 12.5 % (11.5-15.5); WBC 10.8 k/uL (3.8-10.6)
[2021-05-25] MEDS: SODIUM CHLORIDE 0.9% 1,000 ML IV SCH ×2 (01:48→17:20)
[2021-05-25 02:02] LABS: ALT 12 U/L (4-34); AST 18 U/L (14-36); African American GFR (CKD) >90 (>60 ml/min/1.73 sqM); Albumin 4.4 g/dL (3.5-5.0); Alkaline Phosphatase 97 U/L (38-126); Anion Gap 10 mmol/L; Blood Urea Nitrogen 13 mg/dL (7-17); Calcium 9.5 mg/dL (8.4-10.2); Carbon Dioxide 22 mmol/L (22-30); Chloride 108 mmol/L (98-107); Glucose 149 mg/dL (74-99); Non-African American GFR(CKD) >90 (>60 ml/min/1.73 sqM); Potassium 3.6 mmol/L (3.5-5.1); Sodium 140 mmol/L (137-145); Total Bilirubin 0.4 mg/dL (0.2-1.3); Total Protein 7.1 g/dL (6.3-8.2)
[2021-05-25] MEDS: IPRATROPIUM-ALBUTEROL 3 ML NEB INHALATION SCH ×4 (07:22→21:05)
[2021-05-25] MEDS ORDERED: BUDESONIDE 0.5 MG/2 ML NEBU INHALATION SCH (08:00)
--- NOTE | 2021-05-25 08:23 | P.CNPUL ---
History of Present Illness Consult date: 05/25/21 Requesting physician: Robert Musa Reason for consult: dyspnea, cough Chief complaint: dyspnea, cough, wheezing History of present illness: This is a 55-year-old white female patient with past medical history of chronic bronchial asthma, mild intermittent at baseline and patient has not had a flareup in quite a while. She recently moved to this area from [facility]. Patient is a nonsmoker, she does have history of GERD/reflux, previous history of and hysterectomy, no other medical problems, she is not normally prescription medications, not normally on any maintenance i nhalers, other than albuterol. Patient came into the emergency department on 05/24/2021 for evaluation of what she feels like her asthma flareup. Her symptoms started approximately 24 hours prior. In the evening she felt like she was developing shortness of breath and wheezing. Her cough was dry and nonproductive, denied any fever or chills, no chest pain. Chest x-ray showed a normal chest, she was tested for COVID-19 and was found to be negative. She was given oral steroids, and was released home. She returned to the emergency department a few hours later, on 05/25/2021 at around 1:00 in the morning for evaluation. Blood work was also drawn, showing white blood cell count of 10.8, hemoglobin of 13.9, serum sodium of 140, potassium is 3.6, chloride is 108, CO2 is 22, BUN is 13 creatinine was 0.52, LFTs were within normal limits, troponin was less than 0.012, proBNP was 86, 19 was again negative. Patient was started on IV steroids, given nebulized bronchodilators, and we were asked to see the patient in evaluation regarding her acute exacerbation of chronic bronchial asthma. Review of Systems All systems: negative Constitutional: Denies chills, Denies fever Eyes: denies blurred vision, denies pain Ears, nose, mouth and throat: Denies headache, Denies sore throat Cardiovascular: Denies chest pain, Denies shortness of breath Respiratory: Reports dyspnea, Reports wheezing, Denies cough Gastrointestinal: Denies abdominal pain, Denies diarrhea, Denies nausea, Denies vomiting Genitourinary: Denies dysuria, Denies hematuria Musculoskeletal: Denies myalgias Integumentary: Denies pruritus, Denies rash Neurological: Denies numbness, Denies weakness Psychiatric: Denies anxiety, Denies depression Endocrine: Denies fatigue, Denies weight change Past Medical History Past Medical History: Asthma, GERD/Reflux History of Any Multi-Drug Resistant Organisms: None Reported Past Surgical History: Section, Hysterectomy Past Psychological History: No Psychological Hx Reported Smoking Status: Never smoker Past Alcohol Use History: Occasional Past Drug Use History: None Reported Medications and Allergies Home Medications Medication Instructions Recorded Confirmed Type Albuterol Sulfate [Ventolin HFA] 2 puff INHALATION RT-Q4H PRN 10/15/19 05/25/21 History predniSONE 60 mg PO DAILY #30 tab 05/24/21 05/25/21 Rx Allergies Allergy/AdvReac Type Severity Reaction Status Date / Time No Known Allergies Allergy Verified 05/25/21 07:31 Physical Exam Vitals: Vital Signs Temp Pulse Resp BP Pulse Ox 05/25/21 07:40 122 H 05/25/21 07:22 112 H 05/25/21 06:44 98.9 F 107 H 18 112/69 95 05/25/21 05:33 117 H 05/25/21 05:20 111 H 05/25/21 05:19 111 H 05/25/21 05:10 92 05/25/21 01:31 131 H 05/25/21 01:12 110 H 05/25/21 00:49 98 F 122 H 28 H 128/79 88 L Intake and Output 05/24/21 05/25/21 05/25/21 22:59 06:59 14:59 Other: Weight 64.41 kg GENERAL EXAM: Alert, very pleasant, 65-year-old white female, resting comfortably on a gurney in the emergency department, she is currently on 2 L of oxygen, with a pulse ox of 94%comfortable in no apparent distress. HEAD: Normocephalic/atraumatic. EYES: Normal reaction of pupils, equal size. Conjunctiva pink, sclera white. NOSE: Clear with pink turbinates. THROAT: No erythema or exudates. NECK: No masses, no JVD, no thyroid enlargement, no adenopathy. CHEST: No chest wall deformity. Symmetrical expansion. LUNGS: Equal air entry with mild wheezing, and end expiratory maneuver, CVS: Regular rate and rhythm, normal S1 and S2, no gallops, no murmurs, no rubs ABDOMEN: Soft, nontender. No hepatosplenomegaly, normal bowel sounds, no guar ding or rigidity. EXTREMITIES: No clubbing, no edema, no cyanosis, 2+ pulses and upper and lower extremities. MUSCULOSKELETAL: Muscle strength and tone normal. SPINE: No scoliosis or deformity SKIN: No rashes CENTRAL NERVOUS SYSTEM: Alert and oriented -3. No focal deficits, tone is normal in all 4 extremities. PSYCHIATRIC: Alert and oriented -3. Appropriate affect. Intact judgment and insight. Results - Laboratory Findings CBC and BMP: 05/25/21 01:33 05/25/21 01:33 PT/INR, D-dimer D-Dimer 1.28 mg/L FEU (<0.60) H 05/25/21 01:33 Abnormal lab findings: Abnormal Labs 05/25/21 05/25/21 05/25/21 01:33 01:33 01:33 WBC 10.8 H Neutrophils # 9.7 H Lymphocytes # 0.7 L D-Dimer 1.28 H Chloride 108 H Glucose 149 H - Diagnostic Findings Chest x-ray: report reviewed, image reviewed Assessment and Plan Plan: assessment: #1. Acute exacerbation of chronic bronchial asthma, which is mild intermittent at baseline. COVID-19 PCR was negative 2 #2. Mild intermittent bronchial asthma, patient is only on rescue inhaler at baseline #3. Former smoker, currently in remission #4. GERD/reflux #5. History of and hysterectomy Plan: Continue IV steroids Continue Pulmicort and Perforomist Continue DuoNeb 4 times a day and every 2 when necessary COVID-19 PCR was negative 2 Vital signs are stable we'll continue to monitor and follow her clinical course I performed a history & physical examination of the patient and discussed their management with my nurse practitioner, Kenyatta Liao. I reviewed the nurse practitioner's note and agree with the documented findings and plan of care. Lung sounds are positive for diffuse wheezes throughout the lung donato. The findings and the impression was discussed with the patient. I attest to the documentation by the nurse practitioner. Time with Patient: Greater than 30
[2021-05-25] MEDS ORDERED: predniSONE 20 MG TAB PO SCH (09:00)
[2021-05-25] MEDS: FORMOTEROL FUMARATE 20 MCG/2 ML NEBU INHALATION SCH ×2 (09:04→21:05)
[2021-05-25] MEDS: PANTOPRAZOLE 40 MG TABLET PO SCH (12:59)
[2021-05-25] MEDS: methylPREDNISolone SOD SUCCI 125 MG/2 ML VIAL IV SCH ×3 (12:59→18:03)
[2021-05-25] MEDS: HEPARIN SODIUM,PORCINE/PF 5,000 UNIT/0.5 ML SYRINGE SQ SCH (17:20)
[2021-05-25] MEDS: BUDESONIDE 1 MG/2 ML NEBU INHALATION SCH (21:05)
--- NOTE | 2021-05-25 22:31 | P.HPIM ---
History of Present Illness H&P Date: 05/25/21 Chief Complaint: Shortness of breath Patient is a 54-year-old female with a known history of chronic bronchial asthma, GERD, no prior history of smoking presents ER with complaints of shortness of breath and asthma flareup. Patient states that it all started with soreness in her throat and rapidly progressing with worsening shortness of breath and wheezing. Does have cough without sputum production. Denies any fever or chills. No nausea vomiting or abdominal pain or diarrhea. Denied any recent illnesses. No chest pain. Patient initially came to ER last night and went home and came back with worsening symptoms. Chest x-ray showed no acute process. EKG showed sinus tachycardia Laboratory data showed WBC 10.8 hemoglobin 13.9 and platelets 293 lymphocytes 0.7 D-dimer 1.28 Sodium 140 potassium 3.6 chloride 108 bicarb is 22 BUN 13 and creatinine 0.52 blood sugar is 149 Troponin 0 0.012 proBNP 86 and liver enzymes are not elevated. COVID-19 PCR not detected. Review of Systems Constitutional: Patient denies any fever or chills . No generalized weakness or weight loss. Abdomen: Patient denied nausea vomiting and diarrhea and abdominal pain. Cardiovascular: Patient denies any chest pain .+ short of breath no palpitations. Respiratory: Patient does have shortness of breath and cough without sputum production. Neurologic: Patient denied any numbness or tingling headache. Musculoskeletal: Patient denies any complaints of joint swelling or deformity. Skin: Negative Psychiatric: Negative Endocrine: No heat or cold intolerance. No recent weight gain. Genitourinary: No dysuria or hematuria. All other 14 point ROS negative except the above Past Medical History Past Medical History: Asthma, GERD/Reflux History of Any Multi-Drug Resistant Organisms: None Reported Past Surgical History: Section, Hysterectomy Past Psychological History: No Psychological Hx Reported Smoking Status: Never smoker Past Alcohol Use History: Occasional Past Drug Use History: None Reported - Past Family History Mother Family Medical History: No Reported History Father Family Medical History: No Reported History Medications and Allergies Home Medications Medication Instructions Recorded Confirmed Type Albuterol Sulfate [Ventolin HFA] 2 puff INHALATION RT-Q4H PRN 10/15/19 05/25/21 History predniSONE 60 mg PO DAILY #30 tab 05/24/21 05/25/21 Rx Allergies Allergy/AdvReac Type Severity Reaction Status Date / Time No Known Allergies Allergy Verified 05/25/21 17:08 Physical Exam Vitals: Vital Signs Temp Pulse Resp BP Pulse Ox 05/25/21 10:43 115 H 05/25/21 10:33 101 H 05/25/21 07:40 122 H 05/25/21 07:22 112 H 05/25/21 06:44 98.9 F 107 H 18 112/69 95 05/25/21 05:33 117 H 05/25/21 05:20 111 H 05/25/21 05:19 111 H 05/25/21 05:10 92 05/25/21 01:31 131 H 05/25/21 01:12 110 H 05/25/21 00:49 98 F 122 H 28 H 128/79 88 L Intake and Output 05/24/21 05/25/21 05/25/21 22:59 06:59 14:59 Other: Weight 64.41 kg PHYSICAL EXAMINATION: Patient is lying in the bed comfortably, no acute distress, awake alert and oriented.. HEENT: Normocephalic. Neck is supple. Pupils reactive. Nostrils clear. Oral cavity is moist. Neck reveals no JVD, carotid bruits, or thyromegaly. CHEST EXAMINATION: Trachea is central. Symmetrical expansion. Bilateral diminished air entry and expiratory wheeze.. CARDIAC: Normal S1, S2 with no gallops. No murmurs ABDOMEN: Soft. Bowel sounds normal. No organomegaly. No abdominal bruits. Extremities: reveal no edema. No clubbing or cyanosis Neurologically awake, alert, oriented x3 with well-coordinated movements. No focal deficits noted Skin: No rash or skin lesions. Psychiatric: Cooperative. Nonsuicidal Musculoskeletal: No joint swelling or deformity. Normal range of motion. Results CBC & Chem 7: 05/25/21 01:33 05/25/21 01:33 Labs: Abnormal Lab Results - Last 24 Hours (Table) 05/25/21 05/25/21 05/25/21 Range/Units 01:33 01:33 01:33 WBC 10.8 H (3.8-10.6) k/uL Neutrophils # 9.7 H (1.3-7.7) k/uL Lymphocytes # 0.7 L (1.0-4.8) k/uL D-Dimer 1.28 H (<0.60) mg/L FEU Chloride 108 H (98-107) mmol/L Glucose 149 H (74-99) mg/dL Assessment and Plan Assessment: Acute exacerbation of mild intermittent asthma at baseline. GERD Prior history of and hysterectomy DVT prophylaxis with heparin subcu Plan: Patient will be continued on oxygen supplementation currently at 2 L via nasal cannula. Continue with methylprednisolone 60 mg every 6 hourly and duo nebs. Continue with Pulmicort and Perforomist. GI and DVT prophylaxis. Pulmonary is on board. Continue to follow closely.
[2021-05-26] MEDS: methylPREDNISolone SOD SUCCI 125 MG/2 ML VIAL IV SCH ×3 (00:16→11:49)
[2021-05-26] MEDS: HEPARIN SODIUM,PORCINE/PF 5,000 UNIT/0.5 ML SYRINGE SQ SCH ×2 (00:17→08:11)
[2021-05-26] MEDS: PANTOPRAZOLE 40 MG TABLET PO SCH (06:04)
[2021-05-26] MEDS: SODIUM CHLORIDE 0.9% 1,000 ML IV SCH (06:05)
[2021-05-26 06:58] LABS: Basophils % (A) 0 %; Eosinophils % (A) 0 %; HCT 38.3 % (34.0-46.0); HGB 12.8 gm/dL (11.4-16.0); Lymphocytes # (A) 0.9 k/uL (1.0-4.8); Lymphocytes % (A) 12 %; MCH 30.9 pg (25.0-35.0); MCHC 33.5 g/dL (31.0-37.0); MCV 92.2 fL (80.0-100.0); Mean Platelet Volume 7.1; Monocytes # (A) 0.2 k/uL (0-1.0); Monocytes % (A) 3 %; Neutrophils # (A) 6.5 k/uL (1.3-7.7); Neutrophils % (A) 85 %; Platelet Count 296 k/uL (150-450); RBC 4.15 m/uL (3.80-5.40); RDW 12.5 % (11.5-15.5); WBC 7.7 k/uL (3.8-10.6)
[2021-05-26 07:54] LABS: African American GFR (CKD) >90 (>60 ml/min/1.73 sqM); Anion Gap 7 mmol/L; Blood Urea Nitrogen 7 mg/dL (7-17); Calcium 9.5 mg/dL (8.4-10.2); Carbon Dioxide 23 mmol/L (22-30); Chloride 108 mmol/L (98-107); Glucose 154 mg/dL (74-99); Non-African American GFR(CKD) >90 (>60 ml/min/1.73 sqM); Potassium 4.2 mmol/L (3.5-5.1); Sodium 138 mmol/L (137-145)
[2021-05-26] MEDS: FORMOTEROL FUMARATE 20 MCG/2 ML NEBU INHALATION SCH (08:16)
[2021-05-26] MEDS: IPRATROPIUM-ALBUTEROL 3 ML NEB INHALATION SCH ×2 (08:16→11:58)
[2021-05-26] MEDS: BUDESONIDE 1 MG/2 ML NEBU INHALATION SCH (08:16)
[2021-05-26 11:58] VITALS: BP 110/57; RESP 18; TEMP 97.8
[2021-05-26 12:12] VITALS: PULSE 85
--- NOTE | 2021-05-26 12:50 | P.PN ---
Subjective Progress Note Date: 05/26/21 Principal diagnosis: Shortness of breath. This is a 55-year-old white female patient with past medical history of chronic bronchial asthma, mild intermittent at baseline and patient has not had a flareup in quite a while. She recently moved to this area from [facility]. Patient is a nonsmoker, she does have history of GERD/reflux, previous history of and hysterectomy, no other medical problems, she is not normally prescription medications, not normally on any maintenance inhalers, other than albuterol. Patient came into the emergency department on 05/24/2021 for evaluation of what she feels like her asthma flareup. Her symptoms started approximately 24 hours prior. In the evening she felt like she was developing shortness of breath and wheezing. Her cough was dry and nonproductive, denied any fever or chills, no chest pain. Chest x-ray showed a normal chest, she was tested for COVID-19 and was found to be negative. She was given oral steroids, and was released home. She returned to the emergency department a few hours later, on 05/25/2021 at around 1:00 in the morning for evaluation. Blood work was also drawn, showing white blood cell count of 10.8, hemoglobin of 13.9, serum sodium of 140, potassium is 3.6, chloride is 108, CO2 is 22, BUN is 13 creatinine was 0.52, LFTs were within normal limits, troponin was less than 0.012, proBNP was 86, 19 was again negative. Patient was started on IV steroids, given nebulized bronchodilators, and we were asked to see the patient in evaluation regarding her acute exacerbation of chronic bronchial asthma. Progress note dated 05/26/2021. 55-year-old female with history of mild asthma. The patient was seen in the emergency department twice. Initially, she was sent home, subsequent to that, the patient was admitted for worsening asthma attack. Currently, she's feeling much better. She's on 2 L nasal cannula. She may not need and on discharge. She's getting saline at 50 mL an hour. She is hoping to be able to be discharged today, but I told her that was up to her primary care provider. White count 7.7, hemoglobin 12.8, hematocrit 38.3, and platelet count 196,000. Sodium 138, potassium 4.2, chlorides 108, CO2 23, anion gap 7, BUN 7, and creatinine 0.50. Objective - Vital Signs Vital signs: Vital Signs Temp 97.8 F 05/26/21 11:58 Pulse 85 05/26/21 12:10 Resp 18 05/26/21 11:58 BP 110/57 05/26/21 11:58 Pulse Ox 96 05/26/21 11:58 Intake & Output 05/25/21 05/26/21 05/26/21 18:59 06:59 18:59 Intake Total 200 290 300 Balance 200 290 300 Weight 67.1 kg Intake: Oral 200 290 300 Other: Voiding Method Toilet # Voids 1 1 - Exam No acute distress, oriented 3. Currently on 2 L nasal cannula. HEENT examination is grossly unremarkable. Neck supple. Full range of motion. No adenopathy thyromegaly or neck vein distention. Cardiovascular examination reveals regular rhythm rate. S1-S2 normal. No S3 or S4. No discernible murmur noted. Heart rate 85 bpm. Lungs reveal very mild expiratory wheezes. Breath sounds today, much improved. No rhonchi. No crackles. Breath sounds are equal bilaterally. There is prolongation on forced maneuver. Abdomen soft bowel sounds are heard. No masses or tenderness. Extremities are intact. No cyanosis clubbing or edema. Skin is without rash or lesion. Neurologic examination is brief but nonfocal. - Labs CBC & Chem 7: 05/26/21 06:34 05/26/21 06:34 Labs: Abnormal Lab Results - Last 24 Hours (Table) 05/26/21 05/26/21 Range/Units 06:34 06:34 Lymphocytes # 0.9 L (1.0-4.8) k/uL Chloride 108 H (98-107) mmol/L Creatinine 0.50 L (0.52-1.04) mg/dL Glucose 154 H (74-99) mg/dL Assessment and Plan Assessment: #1. Acute exacerbation of chronic bronchial asthma, which is mild intermittent at baseline. COVID-19 PCR was negative 2. #2. Mild intermittent bronchial asthma, patient is only on rescue inhaler at baseline. . #3. Former smoker, currently in remission. #4. GERD/reflux. #5. History of and hysterectomy. Plan: Plan dated 05/26/2021. In my opinion, the patient could be considered for discharge. I did tell the patient, the final say as to discharge or not, would the dependent on the hospital service. The patient's currently on 2 L nasal cannula. We need to check whether or not she needs oxygen on discharge. She should be discharged with a prednisone burst and taper, beginning with 40 mg a day for 4 days, 30 mg a day for 4 days, 20 mg a day for 4 days, and is finishing off with 10 mg a day for 4 days. I would also send her home with Singulair 10 mg at bedtime. She does have a rescue inhaler at home. I told her that I would like to see her in the office testing. Additional recommendations and suggestions are forthcoming. We will continue to follow make recommendations where appropriate. Time with Patient: Less than 30
== END 2021-05-26 15:31 | disposition home or self-care (01) ==
LOC: EC 00:44 → INTOOBSV 01:08 → 4SSUR 01:08 → 6PED 15:44 → UNDODISIN 05-26 15:31
PROVIDERS: ADMIT Hospitalist; ATTEND Hospitalist
DX: J45.21 Mild intermittent asthma with (acute) exacerbation (principal); K21.9 Gastro-esophageal reflux disease without esophagitis; Z20.822 Contact with and (suspected) exposure to COVID-19; Z90.710 Acquired absence of both cervix and uterus; Z98.891 History of uterine scar from previous surgery; Z87.891 Personal history of nicotine dependence
CPT/HCPCS: 96372 ×2; 96376 ×2; 96361; 96374; 99285; 36415; 94640 ×4; 93005; 85379; 83880; 80053; 80048; 84484; 85025 ×2; 87635; G0378 ×3; J2930 ×2; J1644 ×2

== ENCOUNTER 2023-06-07 09:38 | Emergency (ER) | payer OTHER ==
[2023-06-07 09:49] VITALS: TEMP 98
[2023-06-07] MEDS ORDERED: methylPREDNISolone SOD SUCCI 125 MG/2 ML VIAL IV STA (10:03)
[2023-06-07] MEDS ORDERED: IPRATROPIUM-ALBUTEROL 3 ML NEB INHALATION STA (10:03)
[2023-06-07] MEDS ORDERED: SODIUM CHLORIDE 0.9% 1,000 ML IV STA (10:03)
[2023-06-07] MEDS ORDERED: LORazepam 2 MG/ML INJ IV STA (10:04)
--- NOTE | 2023-06-07 10:06 | ED ---
General Adult HPI - General Chief complaint: Shortness of Breath Stated complaint: sob Time Seen by Provider: 06/07/23 09:49 Source: patient, RN notes reviewed Mode of arrival: ambulatory Limitations: no limitations - History of Present Illness Initial comments: Patient is a pleasant 57-year-old female presenting to the emergency department with concerns with source of breath. Onset of symptoms was around a month ago. Patient has occasional cough. No fever. Patient states she has similar symptoms frequently so she with her asthma, generally this time year. Patient does have ALLERGIES and mold seems to activate her asthma. Patient has had whe ezing. No leg pain or leg swelling. No chest pain. - Related Data Home Medications Medication Instructions Recorded Confirmed Albuterol Sulfate [Ventolin HFA] 2 puff INHALATION RT-Q6H PRN 10/15/19 06/07/23 FLUoxetine HCL [Sarafem] 20 mg PO DAILY 06/07/23 06/07/23 Previous Rx's Medication Instructions Recorded predniSONE [Deltasone] 20 mg PO BID #10 tab 06/07/23 Allergies Allergy/AdvReac Type Severity Reaction Status Date / Time No Known Allergies Allergy Verified 06/07/23 11:06 Review of Systems ROS Statement: Those systems with pertinent positive or pertinent negative responses have been documented in the HPI. ROS Other: All systems not noted in ROS Statement are negative. Constitutional: Denies: fever Eyes: Denies: eye pain ENT: Denies: ear pain Respiratory: Reports: as per HPI, dyspnea, wheezes Cardiovascular: Denies: chest pain Endocrine: Denies: fatigue Gastrointestinal: Denies: abdominal pain Musculoskeletal: Denies: back pain Past Medical History Past Medical History: Asthma, GERD/Reflux History of Any Multi-Drug Resistant Organisms: None Reported Past Surgical History: Section, Hysterectomy, Tubal Ligation Additional Past Surgical History / Comment(s): tubes tied Past Anesthesia/Blood Transfusion Reactions: No Reported Reaction Past Psychological History: Anxiety Smoking Status: Never smoker Past Alcohol Use History: Occasional Past Drug Use History: None Reported - Past Family History Mother Family Medical History: No Reported History Father Family Medical History: No Reported History General Exam Limitations: no limitations General appearance: alert, in no apparent distress Head exam: Present: normocephalic Eye exam: Present: normal appearance Neck exam: Present: normal inspection Respiratory exam: Present: respiratory distress, wheezes, decreased breath sounds Cardiovascular Exam: Present: regular rate, normal rhythm GI/Abdominal exam: Present: soft. Absent: tenderness Extremities exam: Present: normal inspection. Absent: pedal edema, calf tenderness Neurological exam: Present: alert Psychiatric exam: Present: normal affect, normal mood Skin exam: Present: normal color Course Vital Signs 06/07/23 06/07/23 06/07/23 09:45 09:50 10:00 Temperature 98 F Pulse Rate 105 H 97 86 Respiratory 26 H 26 H 18 Rate Blood Pressure 101/72 92/74 92/74 O2 Sat by Pulse 98 98 98 Oximetry 06/07/23 06/07/23 06/07/23 10:30 10:50 11:00 Temperature Pulse Rate 80 92 90 Respiratory 19 Rate Blood Pressure 108/63 O2 Sat by Pulse 98 Oximetry EKG Findings - EKG Results: EKG: interpreted by LUIS ANTONIOD, sinus rhythm, normal axis, normal QRS, normal ST/T Medical Decision Making - Medical Decision Making Was pt. sent in by a medical professional or institution (, PA, [facility], urgent care, hospital, or jail...) When possible be specific @ -No Did you speak to anyone other than the patient for history (EMS, parent, family, police, friend...)? What history was obtained from this source @ -No Did you review nursing and triage notes (agree or disagree)? Why? @ -I reviewed and agree with nursing and triage notes Were old charts reviewed (outside hosp., previous admission, EMS record, old EKG, old radiological studies, urgent care reports/EKG's, jail records)? Report findings @ -No old charts were reviewed Differential Diagnosis (chest pain, altered mental status, abdominal pain women, abdominal pain men, vaginal bleeding, weakness, fever, dyspnea, syncope, headache, dizziness, GI bleed, back pain, seizure, CVA, palpatations, mental health, musculoskeletal)? @ -Differential Dyspnea: Coronary syndrome, arrhythmia, tamponade, asthma, COPD, pulmonary embolism, pneumonia, pneumothorax, pulmonary effusion, anaphylaxis, diabetic ketoacidosis, flailed chest, pulmonary contusion, diaphragmatic rupture, anemia, neuromuscular, this is not meant to be an all-inclusive list. EKG interpreted by me (3pts min.). @ -As above X-rays interpreted by me (1pt min.). @ -Chest x-ray shows no acute process. CT interpreted by me (1pt min.). @ -None done U/S interpreted by me (1pt. min.). @ -None done What testing was considered but not performed or refused? (CT, X-rays, U/S, labs)? Why? @ -None What meds were considered but not given or refused? Why? @ -None Did you discuss the management of the patient with other professionals (professionals i.e. , PA, [facility], lab, RT, psych nurse, social sciences chair, forest products teacher, teacher, penal officer, welfare case worker)? Give summary @ -No Was smoking cessation discussed for >3mins.? @ -No Was critical care preformed (if so, how long)? @ -No Were there social determinants of health that impacted care today? How? (Homelessness, low income, unemployed, alcoholism, drug addiction, transportation, low edu. Level, literacy, decrease access to med. care, snf, rehab)? @ -No Was there de-escalation of care discussed even if they declined (Discuss DNR or withdrawal of care, Hospice)? DNR status @ -No What co-morbidities impacted this encounter? (DM, HTN, Smoking, COPD, CAD, Cancer, CVA, ARF, Chemo, Hep., AIDS, mental health diagnosis, sleep apnea, morbid obesity)? @ -None Was patient admitted / discharged? Hospital course, mention meds given and route, prescriptions, significant lab abnormalities, going to OR and other pertinent info. @ -Patient reevaluated and significantly improved. Lungs are clear to auscultation with improved air change. Patient states she is breathing comfo rtable and comfortable with discharge home. Undiagnosed new problem with uncertain prognosis? @ -No Drug Therapy requiring intensive monitoring for toxicity (Heparin, Nitro, Insulin, Cardizem)? @ -No Were any procedures done? @ -No Diagnosis/symptom? @ -Asthma exacerbation Acute, or Chronic, or Acute on Chronic? @ -Acute Uncomplicated (without systemic symptoms) or Complicated (systemic symptoms)? @ -default Side effects of treatment? @ -No Exacerbation, Progression, or Severe Exacerbation? @ -Exacerbation of chronic asthma. Poses a threat to life or bodily function? How? (Chest pain, [place], [place], pneumonia, PE, COPD, DKA, ARF, appy, cholecystitis, CVA, Diverticulitis, Homicidal, Suicidal, threat to staff... and all critical care pts) @ -No - Lab Data Result diagrams: 06/07/23 10:05 06/07/23 10:05 Lab Results 06/07/23 06/07/23 06/07/23 Range/Units 10:05 10:05 10:05 WBC 8.8 (3.8-10.6) k/uL RBC 4.69 (3.80-5.40) m/uL Hgb 14.6 (11.4-16.0) gm/dL Hct 41.6 (34.0-46.0) % MCV 88.7 (80.0-100.0) fL MCH 31.1 (25.0-35.0) pg MCHC 35.1 (31.0-37.0) g/dL RDW 13.0 (11.5-15.5) % Plt Count 387 (150-450) k/uL MPV 7.0 Neutrophils % 58 % Lymphocytes % 25 % Monocytes % 4 % Eosinophils % 11 % Basophils % 1 % Neutrophils # 5.1 (1.3-7.7) k/uL Lymphocytes # 2.2 (1.0-4.8) k/uL Monocytes # 0.4 (0-1.0) k/uL Eosinophils # 0.9 H (0-0.7) k/uL Basophils # 0.1 (0-0.2) k/uL PT 10.1 (10.0-12.5) sec INR 0.9 (<1.2) APTT 24.0 (22.0-30.0) sec Sodium 139 (137-145) mmol/L Potassium 5.0 (3.5-5.1) mmol/L Chloride 105 (98-107) mmol/L Carbon Dioxide 19 L (22-30) mmol/L Anion Gap 15 mmol/L BUN 29 H (7-17) mg/dL Creatinine 0.94 (0.52-1.04) mg/dL Est GFR (CKD-EPI)AfAm 79 (>60 ml/min/1.73 sqM) Est GFR (CKD-EPI)NonAf 69 (>60 ml/min/1.73 sqM) Glucose 76 (74-99) mg/dL Plasma Lactic Acid Abilio (0.7-2.0) mmol/L Calcium 9.7 (8.4-10.2) mg/dL Magnesium 1.9 (1.6-2.3) mg/dL Total Bilirubin 0.2 (0.2-1.3) mg/dL AST 23 (14-36) U/L ALT 19 (4-34) U/L Alkaline Phosphatase 79 (38-126) U/L Total Protein 7.0 (6.3-8.2) g/dL Albumin 4.5 (3.5-5.0) g/dL Coronavirus (PCR) (Not Detectd) 06/07/23 06/07/23 Range/Units 10:05 10:05 WBC (3.8-10.6) k/uL RBC (3.80-5.40) m/uL Hgb (11.4-16.0) gm/dL Hct (34.0-46.0) % MCV (80.0-100.0) fL MCH (25.0-35.0) pg MCHC (31.0-37.0) g/dL RDW (11.5-15.5) % Plt Count (150-450) k/uL MPV Neutrophils % % Lymphocytes % % Monocytes % % Eosinophils % % Basophils % % Neutrophils # (1.3-7.7) k/uL Lymphocytes # (1.0-4.8) k/uL Monocytes # (0-1.0) k/uL Eosinophils # (0-0.7) k/uL Basophils # (0-0.2) k/uL PT (10.0-12.5) sec INR (<1.2) APTT (22.0-30.0) sec Sodium (137-145) mmol/L Potassium (3.5-5.1) mmol/L Chloride (98-107) mmol/L Carbon Dioxide (22-30) mmol/L Anion Gap mmol/L BUN (7-17) mg/dL Creatinine (0.52-1.04) mg/dL Est GFR (CKD-EPI)AfAm (>60 ml/min/1.73 sqM) Est GFR (CKD-EPI)NonAf (>60 ml/min/1.73 sqM) Glucose (74-99) mg/dL Plasma Lactic Acid Abilio 2.3 H* (0.7-2.0) mmol/L Calcium (8.4-10.2) mg/dL Magnesium (1.6-2.3) mg/dL Total Bilirubin (0.2-1.3) mg/dL AST (14-36) U/L ALT (4-34) U/L Alkaline Phosphatase (38-126) U/L Total Protein (6.3-8.2) g/dL Albumin (3.5-5.0) g/dL Coronavirus (PCR) Not Detected (Not Detectd) Disposition Clinical Impression: Asthma exacerbation Disposition: HOME SELF-CARE Condition: Stable Instructions (If sedation given, give patient instructions): Asthma (ED) Additional Instructions: Please use your inhalers as directed. Prescription for antibiotics has been sent to pharmacy. Please do follow-up with your primary care physician in the next couple days for recheck. Return for difficulty breathing, fevers, worsening or change in symptoms or other concerns. Prescriptions: predniSONE [Deltasone] 20 mg PO BID #10 tab Is patient prescribed a controlled substance at d/c from ED?: No Referrals: Nonstaff,Physician [Primary Care Provider] - 1-2 days Isra Childress MD [STAFF PHYSICIAN] - 1-2 days Time of Disposition: 12:21
[2023-06-07 10:15] LABS: Basophils # (A) 0.1 k/uL (0-0.2); Basophils % (A) 1 %; Eosinophils # (A) 0.9 k/uL (0-0.7); Eosinophils % (A) 11 %; HCT 41.6 % (34.0-46.0); HGB 14.6 gm/dL (11.4-16.0); Lymphocytes # (A) 2.2 k/uL (1.0-4.8); Lymphocytes % (A) 25 %; MCH 31.1 pg (25.0-35.0); MCHC 35.1 g/dL (31.0-37.0); MCV 88.7 fL (80.0-100.0); Monocytes # (A) 0.4 k/uL (0-1.0); Monocytes % (A) 4 %; Neutrophils # (A) 5.1 k/uL (1.3-7.7); Neutrophils % (A) 58 %; Platelet Count 387 k/uL (150-450); RBC 4.69 m/uL (3.80-5.40); WBC 8.8 k/uL (3.8-10.6)
[2023-06-07 10:28] LABS: ALT 19 U/L (4-34); AST 23 U/L (14-36); African American GFR (CKD) 79 (>60 ml/min/1.73 sqM); Albumin 4.5 g/dL (3.5-5.0); Alkaline Phosphatase 79 U/L (38-126); Anion Gap 15 mmol/L; Blood Urea Nitrogen 29 mg/dL (7-17); Calcium 9.7 mg/dL (8.4-10.2); Carbon Dioxide 19 mmol/L (22-30); Chloride 105 mmol/L (98-107); Glucose 76 mg/dL (74-99); Magnesium 1.9 mg/dL (1.6-2.3); Non-African American GFR(CKD) 69 (>60 ml/min/1.73 sqM); Sodium 139 mmol/L (137-145); Total Bilirubin 0.2 mg/dL (0.2-1.3)
[2023-06-07 10:29] LABS: INR 0.9 (<1.2); Prothrombin Time 10.1 sec (10.0-12.5)
--- NOTE | 2023-06-07 10:29 | XR ---
EXAMINATION TYPE: XR chest 2V DATE OF EXAM: 06/07/2023 10:26 AM COMPARISON: Chest radiographs from 05/24/2021 TECHNIQUE: XR chest 2V Frontal and lateral views of the chest. CLINICAL INDICATION:Female, 57 years old with history of difficulty breathing; FINDINGS: Lungs/Pleura: There is no evidence of pleural effusion, focal consolidation, or pneumothorax. Chroni c senescent parenchyma change. Pulmonary vascularity: Unremarkable. Heart/mediastinum: Cardiomediastinal silhouette is unremarkable. Musculoskeletal: No acute osseous pathology. IMPRESSION: No acute cardiopulmonary disease/process.
[2023-06-07 12:54] VITALS: BP 100/58; PULSE 91; RESP 18
== END 2023-06-07 12:44 | disposition home or self-care (01) ==
LOC: EC 09:38
DX: J45.901 Unspecified asthma with (acute) exacerbation (principal); F41.9 Anxiety disorder, unspecified; Z79.899 Other long term (current) drug therapy; Z20.822 Contact with and (suspected) exposure to COVID-19
CPT/HCPCS: 99285; 96374; 96375; 96361 ×2; 36415; 94640; 93005; 80053; 83605; 83735; 85025; 85610; 85730; 87635; 71046; J2060; J2930

== ENCOUNTER 2023-06-16 09:53 | Emergency (ER) | payer OTHER ==
[2023-06-16 10:31] VITALS: TEMP 98.7
[2023-06-16] MEDS ORDERED: LORazepam 2 MG/ML INJ IV STA (10:31)
--- NOTE | 2023-06-16 10:38 | ED ---
General Adult HPI - General Chief complaint: Shortness of Breath Stated complaint: weakness-SOB Time Seen by Provider: 06/16/23 10:00 Source: patient, RN notes reviewed, old records reviewed Mode of arrival: wheelchair Limitations: no limitations - History of Present Illness Initial comments: This a 57-year-old female who presents emergency Department stating that she's had 2 weeks and sickness and just doesn't feel well. Patient states she was here a week ago and was given steroids and she has breathing treatments at home and she's been doing them consistently. Patient states she just feels overall fatigued and still short of breath. Patient denies any recent fevers but states she is cold. Patient denies cough. Patient states she's been tested for "his been negative. Patient states she also has a small area of rash on the back of her left thigh. Patient states there were vesicles another ruptured. Patient states his been there for 4 days. Patient states burning sensation over the rash. - Related Data Home Medications Medication Instructions Recorded Confirmed Albuterol Sulfate [Ventolin HFA] 2 puff INHALATION RT-Q6H PRN 10/15/19 06/07/23 FLUoxetine HCL [Sarafem] 20 mg PO DAILY 06/07/23 06/07/23 Previous Rx's Medication Instructions Recorded predniSONE [Deltasone] 20 mg PO BID #10 tab 06/07/23 Azithromycin [Zithromax Tri-Tu (3 500 mg PO DAILY 3 Days #3 tab 06/16/23 tabs)] Allergies Allergy/AdvReac Type Severity Reaction Status Date / Time No Known Allergies Allergy Verified 06/16/23 09:58 Review of Systems ROS Statement: Those systems with pertinent positive or pertinent negative responses have been documented in the HPI. ROS Other: All systems not noted in ROS Statement are negative. Past Medical History Past Medical History: Asthma, GERD/Reflux History of Any Multi-Drug Resistant Organisms: None Reported Past Surgical History: Section, Hysterectomy, Tubal Ligation Additional Past Surgical History / Comment(s): tubes tied Past Anesthesia/Blood Transfusion Reactions: No Reported Reaction Past Psychological History: Anxiety Smoking Status: Never smoker Past Alcohol Use History: Occasional Past Drug Use History: None Reported - Past Family History Mother Family Medical History: No Reported History Father Family Medical History: No Reported History General Exam - General Exam Comments Initial Comments: GENERAL: Patient is well-developed and well-nourished. Patient is nontoxic and well- hydrated and is in no acute distress. ENT: Neck is soft and supple. No significant lymphadenopathy is noted. Oropharynx is clear. Moist mucous membranes. Neck has full range of motion without eliciting any pain. EYES: The sclera were anicteric and conjunctiva were pink and moist. Extraocular movements were intact and pupils were equal round and reactive to light. Eyelids were unremarkable. PULMONARY: Unlabored respirations. Good breath sounds bilaterally. No audible rales rhonchi or wheezing was noted. CARDIOVASCULAR: There is a regular rate and rhythm without any murmurs gallops or rubs. ABDOMEN: Soft and nontender with normal bowel sounds. SKIN: Patient has a rash on the back of her left thigh which is consistent with fascicular lesions consistent with shingles it measures about 2 x 3 cm NEUROLOGIC: Patient is alert and oriented x3. Cranial nerves II through XII are grossly intact. Motor and sensory are also intact. Normal speech, volume and content. Symmetrical smile. MUSCULOSKELETAL: Normal extremities with adequate strength and full range of motion. LYMPHATICS: No significant lymphadenopathy is noted PSYCHIATRIC: Normal psychiatric evaluation. Limitations: no limitations Course Vital Signs 06/16/23 06/16/23 06/16/23 09:55 10:45 13:58 Temperature 98.7 F Pulse Rate 87 82 84 Respiratory 22 18 18 Rate Blood Pressure 73/53 101/56 103/69 O2 Sat by Pulse 98 92 L 94 L Oximetry Medical Decision Making - Medical Decision Making EKG is interpreted by myself. EKG shows a sinus rhythm at 81 bpm OR interval 240 QRS is 85 Q-T intervals 350 QTC is 388. Patient's EKG shows no ST segment elevation or depression. Was pt. sent in by a medical professional or institution (, PA, VOCATIONAL AUTO BODY INSTRUCTOR, urgent care, hospital, or detention...) When possible be specific @ -No Did you speak to anyone other than the patient for history (EMS, parent, family, police, friend...)? What history was obtained from this source @ -No Did you review nursing and triage notes (agree or disagree)? Why? @ -I reviewed and agree with nursing and triage notes Were old charts reviewed (outside hosp., previous admission, EMS record, old EKG, old radiological studies, urgent care reports/EKG's, detention records)? Report findings @ -I reviewed prior charts in prior laboratory this patient Differential Diagnosis (chest pain, altered mental status, abdominal pain women, abdominal pain men, vaginal bleeding, weakness, fever, dyspnea, syncope, headache, dizziness, GI bleed, back pain, seizure, CVA, palpatations, mental health, musculoskeletal)? @ -Differential Dyspnea: Coronary syndrome, arrhythmia, tamponade, asthma, COPD, pulmonary embolism, pneumonia, pneumothorax, pulmonary effusion, anaphylaxis, diabetic ketoacidosis, flailed chest, pulmonary contusion, diaphragmatic rupture, anemia, neuromuscular, this is not meant to be an all-inclusive list. EKG interpreted by me (3pts min.). @ -As above X-rays interpreted by me (1pt min.). @ -Chest x-ray showed no acute abnormality CT interpreted by me (1pt min.). @ -CT scan of the chest showed no PE. However left base shows possible infiltrate patient will be treated for this U/S interpreted by me (1pt. min.). @ -None done What testing was considered but not performed or refused? (CT, X-rays, U/S, labs)? Why? @ -None What meds were considered but not given or refused? Why? @ -None Did you discuss the management of the patient with other professionals (professionals i.e. , PA, VOCATIONAL AUTO BODY INSTRUCTOR, lab, RT, psych nurse, high school social studies teacher, claims supervisor, teacher, banking services officer, gearcase assembler)? Give summary @ -No Was smoking cessation discussed for >3mins.? @ -No Was critical care preformed (if so, how long)? @ -No Were there social determinants of health that impacted care today? How? (Homelessness, low income, unemployed, alcoholism, drug addiction, transp ortation, low edu. Level, literacy, decrease access to med. care, senior care, rehab)? @ -No Was there de-escalation of care discussed even if they declined (Discuss DNR or withdrawal of care, Hospice)? DNR status @ -No What co-morbidities impacted this encounter? (DM, HTN, Smoking, COPD, CAD, Cancer, CVA, ARF, Chemo, Hep., AIDS, mental health diagnosis, sleep apnea, morbid obesity)? @ -None Was patient admitted / discharged? Hospital course, mention meds given and route, prescriptions, significant lab abnormalities, going to OR and other pertinent info. @ -After the patient's CAT scan came back and lab results weren't I went back and talked with the patient I listened to her lungs skin in the right base she did have some crackles that were concerning so I decided to give the patient a shot of Rocephin here in the emergency department sent the patient home on Z ithromax since his been ongoing problem for approximately 2 weeks. Undiagnosed new problem with uncertain prognosis? @ -No Drug Therapy requiring intensive monitoring for toxicity (Heparin, Nitro, Insulin, Cardizem)? @ -No Were any procedures done? @ -No Diagnosis/symptom? @ -Pneumonia Acute, or Chronic, or Acute on Chronic? @ -Acute Uncomplicated (without systemic symptoms) or Complicated (systemic symptoms)? @ -Complicated Side effects of treatment? @ -No Exacerbation, Progression, or Severe Exacerbation? @ -No Poses a threat to life or bodily function? How? (Chest pain, [place], [place], pneumonia, PE, COPD, DKA, ARF, appy, cholecystitis, CVA, Diverticulitis, Homicidal, Suici ronald, threat to staff... and all critical care pts) @ -No - Lab Data Result diagrams: 06/16/23 10:42 06/16/23 10:42 Lab Results 06/16/23 06/16/23 06/16/23 Range/Units 10:42 10:42 10:42 WBC 16.8 H (3.8-10.6) k/uL RBC 4.07 (3.80-5.40) m/uL Hgb 12.4 (11.4-16.0) gm/dL Hct 36.3 (34.0-46.0) % MCV 89.1 (80.0-100.0) fL MCH 30.4 (25.0-35.0) pg MCHC 34.1 (31.0-37.0) g/dL RDW 13.1 (11.5-15.5) % Plt Count 339 (150-450) k/uL MPV 7.5 Neutrophils % 84 % Lymphocytes % 7 % Monocytes % 5 % Eosinophils % 1 % Basophils % 1 % Neutrophils # 14.1 H (1.3-7.7) k/uL Lymphocytes # 1.1 (1.0-4.8) k/uL Monocytes # 0.9 (0-1.0) k/uL Eosinophils # 0.1 (0-0.7) k/uL Basophils # 0.1 (0-0.2) k/uL PT 11.4 (10.0-12.5) sec INR 1.0 (<1.2) APTT 24.3 (22.0-30.0) sec D-Dimer 1.31 H (<0.60) mg/L FEU Sodium 134 L (137-145) mmol/L Potassium 4.3 (3.5-5.1) mmol/L Chloride 99 (98-107) mmol/L Carbon Dioxide 21 L (22-30) mmol/L Anion Gap 14 mmol/L BUN 20 H (7-17) mg/dL Creatinine 1.30 H (0.52-1.04) mg/dL Est GFR (CKD-EPI)AfAm 54 (>60 ml/min/1.73 sqM) Est GFR (CKD-EPI)NonAf 47 (>60 ml/min/1.73 sqM) Glucose 112 H (74-99) mg/dL Plasma Lactic Acid Abilio (0.7-2.0) mmol/L Calcium 8.3 L (8.4-10.2) mg/dL Magnesium 2.3 (1.6-2.3) mg/dL Total Bilirubin 0.7 (0.2-1.3) mg/dL AST 21 (14-36) U/L ALT 22 (4-34) U/L Alkaline Phosphatase 85 (38-126) U/L Troponin I (0.000-0.034) ng/mL Total Protein 6.0 L (6.3-8.2) g/dL Albumin 3.1 L (3.5-5.0) g/dL Influenza Type A (PCR) (Not Detectd) Influenza Type B (PCR) (Not Detectd) RSV (PCR) (Not Detectd) SARS-CoV-2 (PCR) (Not Detectd) 06/16/23 06/16/23 06/16/23 Range/Units 10:42 10:42 10:42 WBC (3.8-10.6) k/uL RBC (3.80-5.40) m/uL Hgb (11.4-16.0) gm/dL Hct (34.0-46.0) % MCV (80.0-100.0) fL MCH (25.0-35.0) pg MCHC (31.0-37.0) g/dL RDW (11.5-15.5) % Plt Count (150-450) k/uL MPV Neutrophils % % Lymphocytes % % Monocytes % % Eosinophils % % Basophils % % Neutrophils # (1.3-7.7) k/uL Lymphocytes # (1.0-4.8) k/uL Monocytes # (0-1.0) k/uL Eosinophils # (0-0.7) k/uL Basophils # (0-0.2) k/uL PT (10.0-12.5) sec INR (<1.2) APTT (22.0-30.0) sec D-Dimer (<0.60) mg/L FEU Sodium (137-145) mmol/L Potassium (3.5-5.1) mmol/L Chloride (98-107) mmol/L Carbon Dioxide (22-30) mmol/L Anion Gap mmol/L BUN (7-17) mg/dL Creatinine (0.52-1.04) mg/dL Est GFR (CKD-EPI)AfAm (>60 ml/min/1.73 sqM) Est GFR (CKD-EPI)NonAf (>60 ml/min/1.73 sqM) Glucose (74-99) mg/dL Plasma Lactic Acid Abilio 0.9 (0.7-2.0) mmol/L Calcium (8.4-10.2) mg/dL Magnesium (1.6-2.3) mg/dL Total Bilirubin (0.2-1.3) mg/dL AST (14-36) U/L ALT (4-34) U/L Alkaline Phosphatase (38-126) U/L Troponin I <0.012 (0.000-0.034) ng/mL Total Protein (6.3-8.2) g/dL Albumin (3.5-5.0) g/dL Influenza Type A (PCR) Not Detected (Not Detectd) Influenza Type B (PCR) Not Detected (Not Detectd) RSV (PCR) Not Detected (Not Detectd) SARS-CoV-2 (PCR) Not Detected (Not Detectd) Disposition Clinical Impression: Pneumonia, Shingles Disposition: HOME SELF-CARE Instructions (If sedation given, give patient instructions): Community Acquired Pneumonia (ED) Prescriptions: Azithromycin [Zithromax Tri-Tu (3 tabs)] 500 mg PO DAILY 3 Days #3 tab Is patient prescribed a controlled substance at d/c from ED?: No Referrals: Ricky Holly MD [Primary Care Provider] - 1-2 days Time of Disposition: 13:41
[2023-06-16] MEDS ORDERED: SODIUM CHLORIDE 0.9% 1,000 ML IV ONE (10:52)
[2023-06-16 10:53] VITALS: RESP 18
[2023-06-16 10:55] LABS: Basophils # (A) 0.1 k/uL (0-0.2); Basophils % (A) 1 %; Eosinophils # (A) 0.1 k/uL (0-0.7); Eosinophils % (A) 1 %; HCT 36.3 % (34.0-46.0); HGB 12.4 gm/dL (11.4-16.0); Lymphocytes # (A) 1.1 k/uL (1.0-4.8); Lymphocytes % (A) 7 %; MCH 30.4 pg (25.0-35.0); MCHC 34.1 g/dL (31.0-37.0); MCV 89.1 fL (80.0-100.0); Mean Platelet Volume 7.5; Monocytes # (A) 0.9 k/uL (0-1.0); Monocytes % (A) 5 %; Neutrophils # (A) 14.1 k/uL (1.3-7.7); Neutrophils % (A) 84 %; Platelet Count 339 k/uL (150-450); RBC 4.07 m/uL (3.80-5.40); RDW 13.1 % (11.5-15.5); WBC 16.8 k/uL (3.8-10.6)
[2023-06-16 11:08] LABS: ALT 22 U/L (4-34); AST 21 U/L (14-36); African American GFR (CKD) 54 (>60 ml/min/1.73 sqM); Albumin 3.1 g/dL (3.5-5.0); Alkaline Phosphatase 85 U/L (38-126); Anion Gap 14 mmol/L; Blood Urea Nitrogen 20 mg/dL (7-17); Calcium 8.3 mg/dL (8.4-10.2); Carbon Dioxide 21 mmol/L (22-30); Chloride 99 mmol/L (98-107); Glucose 112 mg/dL (74-99); Magnesium 2.3 mg/dL (1.6-2.3); Non-African American GFR(CKD) 47 (>60 ml/min/1.73 sqM); Potassium 4.3 mmol/L (3.5-5.1); Sodium 134 mmol/L (137-145); Total Bilirubin 0.7 mg/dL (0.2-1.3)
--- NOTE | 2023-06-16 11:30 | XR ---
EXAMINATION TYPE: XR chest 2V DATE OF EXAM: 06/16/2023 11:06 AM CLINICAL INDICATION:Female, 57 years old with history of difficulty breathing; COMPARISON: Chest radiographs from 06/07/2023 TECHNIQUE: XR chest 2V Frontal and lateral views of the chest. FINDINGS: Lungs/Pleura: There is no evidence of pleural effusion, focal consolidation, or pneumothorax. Pulmonary vascularity: Unremarkable. Heart/mediastinum: Cardiomediastinal silhouette is unremarkable. Musculoskeletal: No acute osseous pathology. IMPRESSION: No acute cardiopulmonary disease/process.
[2023-06-16 12:09] LABS: Partial Thromboplastin Time 24.3 sec (22.0-30.0); Prothrombin Time 11.4 sec (10.0-12.5)
--- NOTE | 2023-06-16 13:28 | CT ---
EXAMINATION TYPE: CT chest angio for PE CT DLP: 225.5 mGycm, Automated exposure control for dose reduction was used. DATE OF EXAM: 06/16/2023 1:15 PM COMPARISON: Chest radiograph from same day. CT 10/15/2019 CLINICAL INDICATION:Female, 57 years old with history of Elevated d-dimer, short of breath; SOB, elev ated d dimer TECHNIQUE/CONTRAST: CTA scan of the thorax is performed with IV Contrast, patient injected with 100 mL of Isovue 370, MIP images are created and reviewed these are created on a separate workstation.. FINDINGS: Pulmonary Artery: There is no evidence for a filling defect within the pulmonary vasculature to sugge st acute pulmonary embolism. The pulmonary artery is of normal size. Lungs/Pleura: No evidence of focal consolidation, pleural effusion or pneumothorax. Airway: Large airways are patent. Heart: Heart is within normal limits for size. Vasculature: No evidence of aortic aneurysm. Mediastinum: No gross evidence of adenopathy. Musculoskeletal: No acute osseous abnormalities Soft Tissues: Unremarkable. Lower neck: No significant findings. Upper Abdomen: No significant findings. IMPRESSION: No evidence of pulmonary embolism.
[2023-06-16] MEDS ORDERED: cefTRIAXone IN SWFI 1,000 MG/10 ML SYRINGE IVP STA (13:41)
[2023-06-16 14:03] VITALS: BP 103/69; PULSE 84
== END 2023-06-16 14:03 | disposition home or self-care (01) ==
LOC: EC 09:53
DX: J18.9 Pneumonia, unspecified organism (principal); B02.9 Zoster without complications; J45.909 Unspecified asthma, uncomplicated; F41.9 Anxiety disorder, unspecified; Z20.822 Contact with and (suspected) exposure to COVID-19; Z79.899 Other long term (current) drug therapy
CPT/HCPCS: 36415; 93005; 85379; 80053; 83605; 83735; 84484; 85025; 85610; 85730; 87636; 71046; 71275; 99285; 96374; 96375; 96361; J2060; J0696; Q9967